=== PATIENT | female | born 1985 | race Caucasian/White ===

== ENCOUNTER 2019-08-09 10:59 | Emergency (ER) | payer OTHER ==
[~2019-08-09] VITALS: Ht 160 cm; Wt 59.0 kg
[2019-08-09] MEDS ORDERED: TESSALON PERLE100 MG PO (12:11)
[2019-08-09 12:34] VITALS: BP 114/69
== END 2019-08-09 12:36 | disposition home or self-care (01) ==
LOC: ER 10:59
DX: J06.9 Acute upper respiratory infection, unspecified (principal)